=== PATIENT | female | born 2000 | race Native Hawaiian/Other Pacific Islander ===

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

== ENCOUNTER 2022-03-22 10:50 | Emergency (ER) | payer OTHER ==
[2022-03-22 10:56] VITALS: BP 127/83; PULSE 96; RESP 14; TEMP 97.7
[2022-03-22] MEDS ORDERED: SODIUM CHLORIDE 0.9% 2,000 ML IV STA (11:31)
[2022-03-22] MEDS ORDERED: ONDANSETRON 4 MG/2 ML VIAL IVP STA (11:31)
[2022-03-22] MEDS ORDERED: MORPHINE SULFATE 4 MG/ML SYRINGE IV STA (11:31)
[2022-03-22 12:58] LABS: Basophils # (A) 0.1 k/uL (0-0.2); Basophils % (A) 1 %; Eosinophils # (A) 0.2 k/uL (0-0.7); Eosinophils % (A) 2 %; HCT 43.6 % (34.0-46.0); HGB 13.9 gm/dL (11.4-16.0); Lymphocytes # (A) 2.7 k/uL (1.0-4.8); Lymphocytes % (A) 26 %; MCH 29.3 pg (25.0-35.0); MCHC 31.9 g/dL (31.0-37.0); MCV 91.9 fL (80.0-100.0); Mean Platelet Volume 8.2; Monocytes # (A) 0.5 k/uL (0-1.0); Monocytes % (A) 5 %; Neutrophils # (A) 6.9 k/uL (1.3-7.7); Neutrophils % (A) 65 %; Platelet Count 293 k/uL (150-450); RBC 4.75 m/uL (3.80-5.40); WBC 10.6 k/uL (4.0-11.0)
[2022-03-22 13:19] LABS: ALT 25 U/L (4-34); AST 26 U/L (14-36); African American GFR (CKD) >90 (>60 ml/min/1.73 sqM); Albumin 4.6 g/dL (3.5-5.0); Alkaline Phosphatase 72 U/L (38-126); Amylase 73 U/L (30-110); Anion Gap 8 mmol/L; Blood Urea Nitrogen 7 mg/dL (7-17); Calcium 9.3 mg/dL (8.4-10.2); Carbon Dioxide 25 mmol/L (22-30); Chloride 107 mmol/L (98-107); Glucose 84 mg/dL (74-99); Lipase 67 U/L (23-300); Non-African American GFR(CKD) >90 (>60 ml/min/1.73 sqM); Sodium 140 mmol/L (137-145); Total Bilirubin 0.3 mg/dL (0.2-1.3); Total Protein 7.6 g/dL (6.3-8.2)
--- NOTE | 2022-03-22 13:59 | ED ---
Abdominal Pain HPI - General Chief Complaint: Abdominal Pain Stated Complaint: Gallbladder pain Time Seen by Provider: 03/22/22 11:08 Source: patient Mode of arrival: ambulatory - History of Present Illness Initial Comments: Patient is a 21-year-old female who presents to the emergency department with a chief complaint abdominal pain. She states the pain started yesterday abruptly and is continuous in the left upper quadrant. Described as a constant stabbing. Patient also reports nausea and vomiting, unable to tolerate food and liquid. Normal bowel movements. Patient went to urgent care today who sent her to the emergency department. Patient does admit to burning with urination. She states she was diagnosed with a urinary tract infection 1 month ago. Apparently pat ient was resistant to Macrobid so she was given 2 other antibiotics which she does not know the name of and has not taken. Patient denies history of kidney stone or infection. She does admit to intermittent fever. No back or side pain. States she's been taking her temperature home with max temp at 100.5 degrees Fahrenheit. She has not taken any antipyretics. Denies chance of . Denies chest pain, shortness of breath, or concerns. - Related Data Previous Rx's Medication Instructions Recorded Cephalexin [Keflex] 250 mg PO Q6HR 5 Days #20 cap 03/22/22 Dicyclomine [Bentyl] 20 mg PO TID PRN #21 tablet 03/22/22 Ondansetron Odt [Zofran Odt] 4 mg PO Q8HR PRN #21 tab 03/22/22 Allergies Allergy/AdvReac Type Severity Reaction Status Date / Time No Known Allergies Allergy Verified 03/22/22 12:10 Review of Systems ROS Statement: Those systems with pertinent positive or pertinent negative responses have been documented in the HPI. ROS Other: All systems not noted in ROS Statement are negative. Past Medical History Past Medical History: No Reported History Additional Past Medical History / Comment(s): UTI History of Any Multi-Drug Resistant Organisms: None Reported Past Surgical History: No Surgical Hx Reported Past Psychological History: ADD/ADHD Smoking Status: Vaper Past Alcohol Use History: None Reported Past Drug Use History: Marijuana General Exam General appearance: alert, in no apparent distress Head exam: Present: atraumatic, normocephalic, normal inspection Eye exam: Present: normal appearance, PERRL, EOMI. Absent: scleral icterus, conjunctival injection, periorbital swelling Respiratory exam: Present: normal lung sounds bilaterally. Absent: respiratory distress, wheezes, rales, rhonchi, stridor Cardiovascular Exam: Present: regular rate, normal rhythm, normal heart sounds. Absent: systolic murmur, diastolic murmur, rubs, gallop, clicks GI/Abdominal exam: Present: soft, tenderness (Left upper quadrant and right upper quadrant, negative Amezcua sign ), normal bowel sounds. Absent: distended, guarding, rebound, rigid Back exam: Present: CVA tenderness (L). Absent: CVA tenderness (R) Neurological exam: Present: alert, oriented X3, CN II-XII intact Psychiatric exam: Present: normal affect, normal mood Skin exam: Present: warm, dry, intact, normal color. Absent: rash Course Vital Signs 03/22/22 10:53 Temperature 97.7 F Pulse Rate 96 Respiratory 14 Rate Blood Pressure 127/83 O2 Sat by Pulse 97 Oximetry Medical Decision Making - Medical Decision Making This is a 21-year-old female with urinary tract infection presenting with left upper quadrant pain, fever, nausea, and vomiting. Thorough history and examination were performed. Patient is currently afebrile. She denies use of antipyretics at home. The abdomen is soft. There is moderate tenderness of the left upper quadrant. Mild left CVA tenderness. Patient also has tenderness in the right upper quadrant. Negative Amezcua sign. Based on patient's history and presentation and physical exam, acute abdominal process cannot be ruled out. I will obtain laboratory studies and CT of abdomen and pelvis with contrast. Urinalysis reveals rare bacteria and large leukocyte esterase however is contaminated by 14 squamous cells. Other laboratory studies are within normal limits. CT of the abdomen and pelvis is unremarkable. Results discussed with patient. At this time there are no diagnostic studies to explain patient's symptoms. Patient will be discharged with Bentyl and Zofran for her symptoms. I will also prescribe her Keflex for possible urinary tract infection since she is still experiencing dysuria. Patient instructed to follow-up with primary care provider in one to 2 days. Return parameters discussed. Patient verbalizes understanding and is agreeable to this plan. Dr. Lieberman is my attending. - Lab Data Result diagrams: 03/22/22 11:56 03/22/22 11:56 Lab Results 03/22/22 03/22/22 03/22/22 Range/Units 11:56 11:56 11:56 WBC 10.6 (4.0-11.0) k/uL RBC 4.75 (3.80-5.40) m/uL Hgb 13.9 (11.4-16.0) gm/dL Hct 43.6 (34.0-46.0) % MCV 91.9 (80.0-100.0) fL MCH 29.3 (25.0-35.0) pg MCHC 31.9 (31.0-37.0) g/dL RDW 13.0 (11.5-15.5) % Plt Count 293 (150-450) k/uL MPV 8.2 Neutrophils % 65 % Lymphocytes % 26 % Monocytes % 5 % Eosinophils % 2 % Basophils % 1 % Neutrophils # 6.9 (1.3-7.7) k/uL Lymphocytes # 2.7 (1.0-4.8) k/uL Monocytes # 0.5 (0-1.0) k/uL Eosinophils # 0.2 (0-0.7) k/uL Basophils # 0.1 (0-0.2) k/uL Sodium 140 (137-145) mmol/L Potassium 4.0 (3.5-5.1) mmol/L Chloride 107 (98-107) mmol/L Carbon Dioxide 25 (22-30) mmol/L Anion Gap 8 mmol/L BUN 7 (7-17) mg/dL Creatinine 0.71 (0.52-1.04) mg/dL Est GFR (CKD-EPI)AfAm >90 (>60 ml/min/1.73 sqM) Est GFR (CKD-EPI)NonAf >90 (>60 ml/min/1.73 sqM) Glucose 84 (74-99) mg/dL Calcium 9.3 (8.4-10.2) mg/dL Total Bilirubin 0.3 (0.2-1.3) mg/dL AST 26 (14-36) U/L ALT 25 (4-34) U/L Alkaline Phosphatase 72 (38-126) U/L Total Protein 7.6 (6.3-8.2) g/dL Albumin 4.6 (3.5-5.0) g/dL Amylase 73 (30-110) U/L Lipase 67 (23-300) U/L HCG, Qual Urine Color Light Yellow Urine Appearance Cloudy H (Clear) Urine pH 6.5 (5.0-8.0) Ur Specific [place] 1.010 (1.001-1.035) Urine Protein Negative (Negative) Urine Glucose (UA) Negative (Negative) Urine Ketones Negative (Negative) Urine Blood Negative (Negative) Urine Nitrite Negative (Negative) Urine Bilirubin Negative (Negative) Urine Urobilinogen <2.0 (<2.0) mg/dL Ur Leukocyte Esterase Large H (Negative) Urine RBC 2 (0-5) /hpf Urine WBC 4 (0-5) /hpf Ur Squamous Epith Cells 14 H (0-4) /hpf Urine Bacteria Rare H (None) /hpf Urine Mucus Rare H (None) /hpf 03/22/22 Range/Units 11:56 WBC (4.0-11.0) k/uL RBC (3.80-5.40) m/uL Hgb (11.4-16.0) gm/dL Hct (34.0-46.0) % MCV (80.0-100.0) fL MCH (25.0-35.0) pg MCHC (31.0-37.0) g/dL RDW (11.5-15.5) % Plt Count (150-450) k/uL MPV Neutrophils % % Lymphocytes % % Monocytes % % Eosinophils % % Basophils % % Neutrophils # (1.3-7.7) k/uL Lymphocytes # (1.0-4.8) k/uL Monocytes # (0-1.0) k/uL Eosinophils # (0-0.7) k/uL Basophils # (0-0.2) k/uL Sodium (137-145) mmol/L Potassium (3.5-5.1) mmol/L Chloride (98-107) mmol/L Carbon Dioxide (22-30) mmol/L Anion Gap mmol/L BUN (7-17) mg/dL Creatinine (0.52-1.04) mg/dL Est GFR (CKD-EPI)AfAm (>60 ml/min/1.73 sqM) Est GFR (CKD-EPI)NonAf (>60 ml/min/1.73 sqM) Glucose (74-99) mg/dL Calcium (8.4-10.2) mg/dL Total Bilirubin (0.2-1.3) mg/dL AST (14-36) U/L ALT (4-34) U/L Alkaline Phosphatase (38-126) U/L Total Protein (6.3-8.2) g/dL Albumin (3.5-5.0) g/dL Amylase (30-110) U/L Lipase (23-300) U/L HCG, Qual Not Detected Urine Color Urine Appearance (Clear) Urine pH (5.0-8.0) Ur Specific [place] (1.001-1.035) Urine Protein (Negative) Urine Glucose (UA) (Negative) Urine Ketones (Negative) Urine Blood (Negative) Urine Nitrite (Negative) Urine Bilirubin (Negative) Urine Urobilinogen (<2.0) mg/dL Ur Leukocyte Esterase (Negative) Urine RBC (0-5) /hpf Urine WBC (0-5) /hpf Ur Squamous Epith Cells (0-4) /hpf Urine Bacteria (None) /hpf Urine Mucus (None) /hpf Disposition Clinical Impression: Nausea and vomiting, Abdominal pain Disposition: HOME SELF-CARE Condition: Good Additional Instructions: Please take medication as directed. Follow-up with primary care provider in one to 2 days. Return to the emergency department if you experience new, concerning, or worsening symptoms. Prescriptions: Dicyclomine [Bentyl] 20 mg PO TID PRN #21 tablet PRN Reason: Pain Cephalexin [Keflex] 250 mg PO Q6HR 5 Days #20 cap Ondansetron Odt [Zofran Odt] 4 mg PO Q8HR PRN #21 tab PRN Reason: Nausea Is patient prescribed a controlled substance at d/c from ED?: No Referrals: Benny Rivera Jr, [Primary Care Provider] - 1-2 days Time of Disposition: 15:16
[2022-03-22 14:06] LABS: Appearance,Urine Cloudy (Clear); Bacteria,Urine Rare /hpf; Bilirubin,Urine Negative (Negative); Blood,Urine Negative (Negative); Color,Urine Light Yellow; Glucose,Urine (UA) Negative (Negative); Ketones,Urine Negative (Negative); Leukocyte Esterase,Urine Large (Negative); Mucus,Urine Rare /hpf; Nitrite,Urine Negative (Negative); PH, Urine 6.5 (5.0-8.0); Protein,Urine Negative (Negative); RBC,Urine 2 /hpf (0-5); Squamous Epithelial Cell,Urine 14 /hpf (0-4); Urobilinogen,Urine <2.0 mg/dL (<2.0); WBC,Urine 4 /hpf (0-5)
--- NOTE | 2022-03-22 14:38 | CT ---
EXAMINATION TYPE: CT abdomen pelvis w con DATE OF EXAM: 03/22/2022 COMPARISON: None available HISTORY: LUQ pain CT DLP: 715.6 mGycm Automated exposure control for dose reduction was used. TECHNIQUE: Helical acquisition of images was performed from the lung bases through the pelvis. CONTRAST: Performed without Oral Contrast and with IV Contrast, patient injected with 100 mL of Isovue 300. FINDINGS: LUNG BASES: No significant abnormality is appreciated. LIVER/GB: No significant abnormality is appreciated. PANCREAS: No significant abnormality is seen. SPLEEN: No significant abnormality is seen. ADRENALS: No significant abnormality is seen. KIDNEYS: No significant abnormality is seen. FREE AIR: No free air is visualized. RETROPERITONEAL ADENOPATHY: None visualized REPRODUCTIVE ORGANS: No gross uterine or adnexal mass, yet suboptimally assessed. URINARY BLADDER: No significant abnormality is seen. PELVIC ADENOPATHY: None visualized. 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 No aggressive bone lesion. BOWEL: Unremarkable nondistended stomach. Reduced diameter of the third part of the duodenum, possib ly due to the patient's body habitus rather than superior mesenteric artery syndrome. Unremarkable sm all bowel. Moderate fecal loading of the colon. Normal appendix. OTHER: Unremarkable abdominal aorta and IVC. No sizable ascites. IMPRESSION: No definite acute abnormality is seen in the abdomen or the pelvis. Incidental findings as described above.
== END 2022-03-22 15:21 | disposition home or self-care (01) ==
LOC: EC 10:50
DX: R10.12 Left upper quadrant pain (principal); R11.2 Nausea with vomiting, unspecified; F17.290 Nicotine dependence, other tobacco product, uncomplicated; Z87.440 Personal history of urinary (tract) infections
CPT/HCPCS: 36415; 80053; 82150; 83690; 85025; 81001; 84703; 74177; 99284; 96374; 96375; 96361; J2270; J2405; Q9967

== ENCOUNTER 2022-03-26 17:11 | Emergency (ER) | payer OTHER ==
[2022-03-26 18:47] VITALS: BP 115/76; PULSE 89; RESP 18; TEMP 97.8
[2022-03-26 19:06] LABS: Appearance,Urine Clear (Clear); Bacteria,Urine Rare /hpf; Bilirubin,Urine Negative (Negative); Blood,Urine Trace (Negative); Color,Urine Light Yellow; Glucose,Urine (UA) Negative (Negative); Ketones,Urine Negative (Negative); Leukocyte Esterase,Urine Trace (Negative); Mucus,Urine Few /hpf; Nitrite,Urine Negative (Negative); PH, Urine 5.5 (5.0-8.0); Protein,Urine Negative (Negative); RBC,Urine 1 /hpf (0-5); Specific Gravity,Urine 1.011 (1.001-1.035); Squamous Epithelial Cell,Urine 2 /hpf (0-4); Urobilinogen,Urine <2.0 mg/dL (<2.0); WBC,Urine 4 /hpf (0-5)
== END 2022-03-26 20:52 | disposition left against medical advice (07) ==
LOC: EC 17:11
DX: Z53.21 Procedure and treatment not carried out due to patient leaving prior to being seen by health care provider (principal)
CPT/HCPCS: 81001; 81025; 99499

== ENCOUNTER → 2022-04-11 | Outpatient (CLI) | payer OTHER ==
--- NOTE | 2022-04-11 16:21 | US ---
EXAMINATION TYPE: US abdomen complete DATE OF EXAM: 04/11/2022 COMPARISON: None CLINICAL HISTORY: 21-year-old female R10.30 LOWER ABDOMINAL PAIN, UNSPECIFIED,R11.2,N92.6. Pain, naus ea, vomiting. EXAM MEASUREMENTS: Liver Length: 13.7 cm Gallbladder Wall: 0.25 cm CBD: 0.41 cm Spleen: 10.3 cm Right Kidney: 12.3 x 5.7 x 4.0 cm Left Kidney: 11.0 x 5.3 x 5.3 cm Language Tutor notes: Limited due to gas. Pancreas: Slightly limited head due to gas. Remainder of the pancreas shows no gross abnormality. Liver: No abnormalities seen. Gallbladder: No abnormal distention, wall thickening, pericholecystic fluid, or shadowing calculi. Evidence for sonographic Amezcua's sign: No CBD: Portions seen appear wnl Spleen: Limited, no abnormalities seen. Right Kidney: Measures upper limits of normal. No hydronephrosis. Left Kidney: Appears wnl. No hydronephrosis. Upper IVC: Appears wnl Abd Aorta: Appears wnl IMPRESSION: Slightly limited due to bowel gas. Otherwise, unremarkable sonographic examination of the abdomen.
--- NOTE | 2022-04-11 16:25 | US ---
EXAMINATION TYPE: US pelvis complete transvag DATE OF EXAM: 04/11/2022 COMPARISON: CT 03/22/2022 CLINICAL HISTORY: 21-year-old female R10.30 LOWER ABDOMINAL PAIN, UNSPECIFIED,R11.2,N92.6. Pain. Keyla ent states she took an at home test and it was positive. Patient states doctor's office pre gnancy test was negative. Ultrasound ordered of the pelvis for late menstrual period, nausea/vomiting , and pain. LMP 02/15/2022. TECHNIQUE: Transabdominal sonographic images of the pelvis were acquired. Transvaginal sonographic i mages were medically necessary to better assess the following anatomy: Ovaries Date of LMP: 02/15/2022 EXAM MEASUREMENTS: Uterus: 7.1 x 5.0 x 3.4 cm Endometrial Stripe: 0.88 cm Right Ovary: 3.5 x 2.3 x 2.1 cm Left Ovary: 3.4 x 2.8 x 2.5 cm 1. Uterus: Anteverted. Anechoic fluid-appearing area seen in cervix: 0.9 x 0.2 x 0.3 cm. 2. Endometrium: Measures 0.88 cm. 3. Right Ovary: Oval hypoechoic lesion measuring 1.5 x 1.4 x 1.4 cm with prominent peripheral vascul arity suggesting a hemorrhagic corpus luteum. Peripheral follicles are present. 4. Left Ovary: Complex lesion measuring 2.0 x 2.6 x 2.2 cm with internal reticulations. Mural based crescentic area, suspected retractile clot. 5. Bilateral Adnexa: Appear wnl 6. Posterior cul-de-sac: Mild free fluid visualized. IMPRESSION: 1. Small amount of 9 x 3 mm fluid along the endocervical canal. Correlate with serial beta hCG. Some hemorrhagic debris or failed not excluded at this time. No visualized intrauterine pregnanc y. 2. A 1.5 cm hemorrhagic corpus luteum right ovary. 3. Suspect an additional hemorrhagic cyst measuring 2.6 cm and the left ovary. Follow-up ultrasound i n 6-8 weeks to ensure involution of both of these structures. 4. Mild cul-de-sac free fluid likely physiologic.
== END | disposition home or self-care (01) ==
LOC: RADUSWWP 09:08
PROVIDERS: ATTEND Family Medicine
DX: N92.6 Irregular menstruation, unspecified (principal); R14.3 Flatulence; R11.2 Nausea with vomiting, unspecified; R10.30 Lower abdominal pain, unspecified
CPT/HCPCS: 76700; 76830; 76856

== ENCOUNTER 2023-06-19 12:37 | Outpatient (CLI) | payer OTHER ==
[2023-06-19 13:34] LABS: Appearance,Urine Clear (Clear); Bilirubin,Urine Negative (Negative); Blood,Urine Negative (Negative); Color,Urine Light Yellow; Glucose,Urine (UA) Negative (Negative); Ketones,Urine 1+ (Negative); Leukocyte Esterase,Urine Small (Negative); Mucus,Urine Rare /hpf; Nitrite,Urine Negative (Negative); PH, Urine 7.5 (5.0-8.0); Protein,Urine Trace (Negative); RBC,Urine <1 /hpf (0-5); Specific Gravity,Urine 1.007 (1.001-1.035); Squamous Epithelial Cell,Urine 1 /hpf (0-4); Urobilinogen,Urine <2.0 mg/dL (<2.0); WBC,Urine 9 /hpf (0-5)
[2023-06-19 13:44] LABS: Basophils % (A) 0 %; Eosinophils # (A) 0.2 k/uL (0-0.7); Eosinophils % (A) 2 %; HCT 32.4 % (34.0-46.0); HGB 11.1 gm/dL (11.4-16.0); Lymphocytes % (A) 16 %; MCHC 34.4 g/dL (31.0-37.0); MCV 93.1 fL (80.0-100.0); Monocytes # (A) 0.5 k/uL (0-1.0); Monocytes % (A) 4 %; Neutrophils # (A) 9.4 k/uL (1.3-7.7); Neutrophils % (A) 76 %; Platelet Count 208 k/uL (150-450); RBC 3.48 m/uL (3.80-5.40); RDW 14.1 % (11.5-15.5); WBC 12.3 k/uL (3.8-10.6)
[2023-06-19 13:56] LABS: AST 27 U/L (14-36); African American GFR (CKD) >90 (>60 ml/min/1.73 sqM); Blood Urea Nitrogen 5 mg/dL (7-17); LDH 186 U/L (120-246); Non-African American GFR(CKD) >90 (>60 ml/min/1.73 sqM); Uric Acid 3.8 mg/dL (3.7-7.4)
[2023-06-19 14:02] LABS: ALT 27 U/L (4-34)
[2023-06-19 15:14] LABS: Creatinine,Urine Random 50.2 mg/dL; Protein/Creatinine Ratio,Urine 0.637
[2023-06-19 18:45] VITALS: BP 128/83; PULSE 82; RESP 18; TEMP 97.7
--- NOTE | 2023-06-20 04:52 | P.MSEPDOC ---
Presenting Problems - Arrival Data Date of Arrival on Unit: 06/19/23 Time of Arrival on Unit: 12:37 Mode of Transport: Ambulatory - Complaint OB-Reason for Admission/Chief Complaint: PIH Comment: pt sent over from the office for PIH workup due to a few elevated bp's Medical History - Information : 1 Para: 0 Term: 0 : 0 Abortions: Spontaneous or Elective: 0 Number of Living Children: 0 - Gestational Age Gestational Age by ANGELITO (wks/days): 39 Weeks and 4 Days Review of Systems - Review of Systems Constitutional: No problems Breast: No problems ENT: No problems Cardiovascular: No problems Respiratory: No problems Gastrointestinal: No problems Genitourinary: No problems Musculoskeletal: No problems Neurological: No problems Skin: No problems Vital Signs - Temperature Temperature: 97.7 F Temperature Source: Temporal Artery Scan - Pulse Right Brachial Pulse Rate: 82 Pulse Assessment Method: Automatic Cuff - Respirations Respiratory Rate: 18 Oxygen Delivery Method: Room Air O2 Sat by Pulse Oximetry: 97 - Blood Pressure Right Arm Blood Pressure: 128/83 Blood Pressure Mean: 98 Blood Pressure Source: Automatic Cuff Medical Screen Scoring - Uterine Contractions Intensity: Mild Resting: Soft to palpation - Assessment - Baby A Baseline FHR: 120 Heart Rate - NICHD Category: Category I (Normal) NST: Reactive Physician Notification - Physician Notified Physician Notified Date: 06/19/23 Physician Notified Time: 13:10 Physician: Liana Urban New Order Received: Yes - Notification Comment Comment: pt's labs wnl except for elevated protien/creatine ratio, bp's wnl, pt is being discharged home tonight and added to schedule for cervidil induction tomorrow 06/20/23, pt given instructions on labor and preeclampsia s/s and when to return Maternal Triage Index - Maternal Triage Index Presenting for scheduled procedure w/no complaint: No - Stat/Priority 1 Stat Priority 1: No - Urgent/Priority 2 Urgent Priority 2: Yes Provider Notified: Liana Urban Provider Notified Time: 13:10 Criteria Met for Priority 2: pt sent over from the office for PIH workup due to a few elevated bp's Disposition - Disposition OB Disposition: Triage, Discharge to home Discharge Date: 06/19/23 Discharge Time: 16:15 I agree with the RN Medical Screening Exam: Yes Physician's MSE Comment: Due to to elevated blood pressures in the office and PC ratio elevated despite normal blood pressures in triage, patient does have a diagnosis of frequency without severe features. Patient was advised that she could stay this evening for Cervidil cervical ripening followed by oxytocin induction tomorrow morning. Patient wished to go home today and come back tomorrow. Since all of her blood pressures were in the normal range in triage, I felt comfortable with this plan but she was advised to return if any new signs or symptoms including headaches, blurry vision, or epigastric pain. She will return tomorrow evening for Cervidil cervical ripening followed by oxytocin induction of labor on . Case reviewed; plan agreed upon as documented in EMR&OBIX.: Yes Diagnosis: MILD TO MODERATE PRE-ECLAMPSIA, THIRD TRIMESTER
== END 2023-06-19 16:15 | disposition home or self-care (01) ==
LOC: FBPOP 12:37
PROVIDERS: ATTEND Obstetrics & Gynecology
DX: O14.03 Mild to moderate pre-eclampsia, third trimester (principal); Z3A.39 39 weeks gestation of pregnancy; Z91.030 Bee allergy status
CPT/HCPCS: 59025; 36415; 82570; 84156; 82565; 83615; 84450; 84460; 84520; 84550; 85025; 81001; G0463; 99215

== ENCOUNTER 2023-06-20 15:50 | Inpatient (IN) | payer OTHER ==
[2023-06-20] MEDS ORDERED: DINOPROSTONE 10 MG INSERT.ER VAGINAL ONE (16:30)
[2023-06-21 00:45] LABS: Amphetamine Screen,Urine Not Detected (NotDetected); Barbiturate Screen,Urine Not Detected (NotDetected); Benzodiazepines Screen,Urine Not Detected (NotDetected); Cocaine Screen,Urine Not Detected (NotDetected); Methadone Screen, Urine Not Detected (NotDetected); Opiate Screen,Urine Not Detected (NotDetected); Oxycodone Screen, Urine Not Detected (NotDetected); Phencyclidine Screen,Urine Not Detected (NotDetected); Tricyclic Antidepressant,Urine Not Detected (NotDetected); Urn Cannabinoid Scrn Not Detected (NotDetected)
[2023-06-21] MEDS ORDERED: LIDOCAINE 0.5% (PF) 5 MG/ML (50 ML SDV) SQ PRN (05:02)
[2023-06-21] MEDS ORDERED: METHYLERGONOVINE 0.2 MG/ML 1 ML AMP IM PRN (05:02)
[2023-06-21] MEDS ORDERED: CARBOPROST TROMETHAMINE 250 MCG/ML 1 ML AMP IM PRN (05:02)
[2023-06-21] MEDS ORDERED: TRANEXAMIC 1,000 MG/100ML-NACL 1,000 MG in EMPTY BAG 1 BAG IV PRN (05:02)
[2023-06-21] MEDS ORDERED: OXYTOCIN 10 UNIT/ML 1 ML VIAL IM PRN (05:02)
[2023-06-21] MEDS ORDERED: TERBUTALINE 1 MG/ML VIAL SQ PRN (05:02)
[2023-06-21] MEDS ORDERED: miSOPROStoL 200 MCG TAB PO PRN (05:02)
[2023-06-21] MEDS: LACTATED RINGERS 1,000 ML IV SCH ×2 (05:15→13:17)
[2023-06-21] MEDS: OXYTOCIN 30 UNITS/500 ML NS 30 UNIT in SALINE 1 500ML.BAG IV SCH (05:50)
[2023-06-21 06:03] LABS: Basophils % (A) 0 %; Eosinophils # (A) 0.3 k/uL (0-0.7); Eosinophils % (A) 2 %; HCT 35.4 % (34.0-46.0); HGB 11.9 gm/dL (11.4-16.0); Lymphocytes # (A) 2.5 k/uL (1.0-4.8); Lymphocytes % (A) 20 %; MCH 31.6 pg (25.0-35.0); MCHC 33.7 g/dL (31.0-37.0); MCV 93.6 fL (80.0-100.0); Mean Platelet Volume 10.8; Monocytes # (A) 0.8 k/uL (0-1.0); Monocytes % (A) 6 %; Neutrophils # (A) 8.7 k/uL (1.3-7.7); Neutrophils % (A) 68 %; Platelet Count 224 k/uL (150-450); RBC 3.78 m/uL (3.80-5.40); RDW 14.3 % (11.5-15.5); WBC 12.7 k/uL (3.8-10.6)
[2023-06-21] MEDS: HYDROmorphone 1 MG/ML 1 ML SYRINGE IVP PRN ×2 (16:07→19:05)
[2023-06-21] MEDS ORDERED: ROPIVACAINE 5 MG/ML 30 ML VIAL ONE (21:00)
[2023-06-21] MEDS ORDERED: SODIUM CHLORIDE 0.9% 250 ML BAG ONE (21:00)
[2023-06-21] MEDS ORDERED: fentaNYL (PF) 50 MCG/ML 5 ML AMP ONE (21:00)
[2023-06-22] MEDS ORDERED: HYDROCORTISONE 2.5% RECTAL CREAM 30 GM TUBE RECTAL PRN (00:09)
[2023-06-22] MEDS ORDERED: diphenhydrAMINE 50 MG/ML 1 ML VIAL IVP PRN ×2 (00:09)
[2023-06-22] MEDS ORDERED: BENZOCAINE/MENTHOL SPRAY 1 GM/SPRAY AEROSOL TOPICAL PRN (00:09)
[2023-06-22] MEDS ORDERED: ACETAMINOPHEN TAB 325 MG TAB PO PRN (00:09)
[2023-06-22] MEDS ORDERED: SIMETHICONE 80 MG CHEWABLE PO PRN (00:09)
[2023-06-22] MEDS ORDERED: diphenhydrAMINE 50 MG CAP PO PRN (00:09)
[2023-06-22] MEDS ORDERED: diphenhydrAMINE 25 MG CAP PO PRN (00:09)
[2023-06-22] MEDS ORDERED: LANOLIN CREAM 5 GM TUBE TOPICAL PRN (00:09)
[2023-06-22] MEDS: LACTATED RINGERS 1,000 ML IV SCH ×2 (00:15→20:39)
[2023-06-22] MEDS: IBUPROFEN 600 MG TAB PO PRN ×4 (00:42→20:40)
[2023-06-22] MEDS: OXYTOCIN 30 UNITS/500 ML NS 30 UNIT in SALINE 1 500ML.BAG IV SCH (00:42)
--- NOTE | 2023-06-22 07:46 | P.HPOB ---
History of Present Illness H&P Date: 06/20/23 Chief Complaint: induction of labor 23 year old presents at 39 weeks 5 days for 2 stage induction of labor. Her cervix is closed, thick and -3 station. heart tones are category 1. She did have a few higher BPs over the last few days. Review of Systems All systems: negative Constitutional: Denies chills, Denies fever Eyes: denies blurred vision, denies pain Ears, nose, mouth and throat: Denies headache, Denies sore throat Cardiovascular: Denies chest pain, Denies shortness of breath Respiratory: Denies cough Gastrointestinal: Denies abdominal pain, Denies diarrhea, Denies nausea, Denies vomiting Genitourinary: Denies dysuria, Denies hematuria Musculoskeletal: Denies myalgias Integumentary: Denies pruritus, Denies rash Neurological: Denies numbness, Denies weakness Psychiatric: Denies anxiety, Denies depression Endocrine: Denies fatigue, Denies weight change Past Medical History Past Medical History: No Reported History Additional Past Medical History / Comment(s): UTI History of Any Multi-Drug Resistant Organisms: None Reported Past Surgical History: No Surgical Hx Reported Past Anesthesia/Blood Transfusion Reactions: No Reported Reaction Past Psychological History: ADD/ADHD Smoking Status: Current every day smoker Past Alcohol Use History: None Reported Past Drug Use History: Marijuana Additional Drug Use History / Comment(s): stopped marijuana use 4 days ago. Medications and Allergies Home Medications Medication Instructions Recorded Confirmed Type Vit No.179/Iron/Folic 1 tab PO DAILY 11/28/22 06/20/23 History [ Tablet] Allergies Allergy/AdvReac Type Severity Reaction Status Date / Time bee venom protein (honey bee) Allergy Anaphylaxis Verified 06/19/23 12:52 Exam Osteopathic Statement: *. No significant issues noted on an osteopathic structural exam other than those noted in the History and Physical/Consult. Vital Signs Temp Pulse Resp BP Pulse Ox 06/22/23 04:00 98.5 F 84 16 138/87 06/22/23 01:10 98.3 F 106 H 16 137/63 98 06/22/23 00:40 115 H 15 113/71 96 06/22/23 00:10 97.8 F 84 16 122/60 93 L 06/21/23 23:55 97.8 F 100 15 132/83 06/21/23 23:40 101 H 15 122/81 97 06/21/23 23:25 98.3 F 96 16 128/68 98 06/21/23 23:10 102 H 16 139/91 Intake and Output 06/21/23 06/22/23 06/22/23 22:59 06:59 14:59 Intake Total 37.733 Output Total 420 Balance -382.267 Intake: Intake, IV Titration 37.733 Amount Oxytocin 30 Units/500 ml 37.733 Ns 30 unit In Saline 1 500ml.bag @ Per Protocol IV .Q0M [facility] Rx#:[id number] Output: Estimated Blood Loss 200 Output, Quantitative 220 Blood Loss Other: # Voids 1 1 Heart: Regular rate and rhythm Lungs: Clear to auscultation bilaterally Abdomen: Soft, nontender Extremities: Negative Homans sign Results Result Diagrams: 06/21/23 05:23 Assessment and Plan (1) Gestational hypertension Current Visit: Yes Status: Acute Code(s): O13.9 - GESTATIONAL HTN W/O SIGNIFICANT PROTEINURIA, UNSP TRIMESTER SNOMED Code(s): 22343312 (2) Encounter for induction of labor Current Visit: Yes Status: Acute Code(s): Z34.90 - ENCNTR FOR SUPRVSN OF NORMAL , UNSP, UNSP TRIMESTER SNOMED Code(s): 553091975 Plan: 1. Cervidil tonight and then amniotomy and Pitocin the morning
--- NOTE | 2023-06-22 07:48 | P.PROBDLV ---
Vaginal Delivery Note - . Vaginal Delivery Note: 23 year old presents at 39 weeks 5 days for 2 stage induction of labor. Her cervix is closed, thick and -3 station. heart tones are category 1. She did have a few higher BPs over the last few days. Cervidil was placed and 12 hours later was removed. Her cervix was still closed and 50% and -2 station. We did start Pitocin around 7 AM she started having some regular contractions. At 1227 her cervix was 1 cm dilated, 80% effaced, -2 station. Amniotomy was performed and clear fluid was noted. She progressed slowly throughout the day and she was very uncomfortable got an epidural. Her cervix was completely dilated around 20-30. She pushed, and delivered a viable male infant over intact perineum under epidural anesthesia at 2304. Head delivered OA, anterior shoulder delivered gentle downward guidance folic posterior shoulder and rest of body. Nose and mouth bulb suctioned, cord clamped and cut, infant placed mother's abdomen. Apgars 8, 9, weight 7 lbs. 10 oz. Placenta delivered spontaneously, intact with three-vessel cord at 2309. Vagina, cervix, perineum inspected. No lacerations noted. Estimated blood loss 200 mL. Mother and baby in stable condition.
--- NOTE | 2023-06-22 07:49 | P.DS ---
Providers Date of admission: 06/20/23 15:50 Expected date of discharge: 06/22/23 Attending physician: Ariadna Vo Primary care physician: Stated None - Discharge Diagnosis(es) (1) Gestational hypertension Current Visit: Yes Status: Acute (2) Encounter for induction of labor Current Visit: Yes Status: Resolved (3) Normal vaginal delivery Current Visit: Yes Status: Acute Hospital Course: Patient presented for induction of labor. She underwent a normal vaginal delivery. course was uneventful. She denies nausea, vomiting, chest pain, shortness of breath or calf pain. She'll be discharged home day #1 in stable condition to follow-up with me in 6 weeks. Plan - Discharge Summary New Discharge Prescriptions: New Ibuprofen [Motrin] 600 mg PO Q6HR PRN #30 tab PRN Reason: Mild Pain Or Fever >= 100.5 No Action Vit No.179/Iron/Folic [ Tablet] 1 tab PO DAILY Discharge Medication List Vit No.179/Iron/Folic [ Tablet] 1 tab PO DAILY 11/28/22 [History] Ibuprofen [Motrin] 600 mg PO Q6HR PRN #30 tab 06/22/23 [Rx] Follow up Appointment(s)/Referral(s): Ariadna Vo DO [Doctor of Osteopathic Medicine] - 07/31/23 11:15 am Discharge Disposition: HOME SELF-CARE
[2023-06-22] MEDS: SENNOSIDES-DOCUSATE SODIUM 1 EACH TAB PO SCH ×2 (10:38→20:40)
[2023-06-22 20:39] VITALS: RESP 16
[2023-06-23 06:21] LABS: Basophils % (A) 0 %; Eosinophils # (A) 0.3 k/uL (0-0.7); Eosinophils % (A) 2 %; HCT 29.8 % (34.0-46.0); Lymphocytes % (A) 22 %; MCH 31.1 pg (25.0-35.0); MCHC 33.4 g/dL (31.0-37.0); MCV 93.1 fL (80.0-100.0); Mean Platelet Volume 10.3; Monocytes # (A) 0.8 k/uL (0-1.0); Monocytes % (A) 5 %; Neutrophils # (A) 9.4 k/uL (1.3-7.7); Neutrophils % (A) 68 %; Platelet Count 239 k/uL (150-450); RBC 3.21 m/uL (3.80-5.40); RDW 14.1 % (11.5-15.5); WBC 13.8 k/uL (3.8-10.6)
[2023-06-23 08:37] VITALS: BP 142/92; PULSE 84; TEMP 97.5
[2023-06-23] MEDS: SENNOSIDES-DOCUSATE SODIUM 1 EACH TAB PO SCH (09:34)
== END 2023-06-23 11:00 | disposition home or self-care (01) | DRG 560 ==
LOC: 4FBP 15:50
PROVIDERS: ADMIT Obstetrics & Gynecology; ATTEND Obstetrics & Gynecology
PROC: 10E0XZZ Delivery of Products of Conception, External Approach (ICD-10-PCS; principal; 2023-06-21)
PROC: 3E0P7VZ Introduction of Hormone into Female Reproductive, Via Natural or Artificial Opening (ICD-10-PCS; 2023-06-21)
PROC: 3E033VJ Introduction of Other Hormone into Peripheral Vein, Percutaneous Approach (ICD-10-PCS; 2023-06-21)
PROC: 10907ZC Drainage of Amniotic Fluid, Therapeutic from Products of Conception, Via Natural or Artificial Opening (ICD-10-PCS; 2023-06-21)
PROC: 3E0R3BZ Introduction of Anesthetic Agent into Spinal Canal, Percutaneous Approach (ICD-10-PCS; 2023-06-21)
DX: O13.4 Gestational [pregnancy-induced] hypertension without significant proteinuria, complicating childbirth (principal); Z37.0 Single live birth; F17.210 Nicotine dependence, cigarettes, uncomplicated; O99.334 Smoking (tobacco) complicating childbirth; Z3A.39 39 weeks gestation of pregnancy; Z91.030 Bee allergy status
CPT/HCPCS: 80306; 85025; 86850; 86900; 86901

== ENCOUNTER 2024-08-10 19:46 | Emergency (ER) | payer OTHER ==
[2024-08-10 19:54] VITALS: TEMP 97.8
--- NOTE | 2024-08-10 20:35 | ED ---
Chest Pain HPI - General Chief Complaint: Chest Pain Stated Complaint: chest pain Time Seen by Provider: 08/10/24 20:00 Source: patient, RN notes reviewed Mode of arrival: ambulatory Limitations: no limitations - History of Present Illness Initial Comments: 24-year-old female presenting for epigastric pain x 3 days with associated chest pain and nausea and vomiting. Patient reports she has had progressively worsening, burning pain in her epigastric region, worse in the right upper quadrant that radiates to the chest. She reports pain has become more severe and constant over the past 3 days. She is also experiencing shortness of breath. She does have a history of "gallbladder sludge". Denies history of abdominal surgeries. Denies cardiac or pulmonary issues. She does have history of hyperthyroidism and has not been taking her medication due to pharmacy issue. Last bowel movement was prior to arrival and was normal. - Related Data Home Medications Medication Instructions Recorded Confirmed Vit No.179/Iron/Folic 1 tab PO DAILY 11/28/22 06/20/23 [ Tablet] Previous Rx's Medication Instructions Recorded Ibuprofen [Motrin] 600 mg PO Q6HR PRN #30 tab 06/22/23 Ketorolac [Toradol] 10 mg PO Q8HR #15 tab 08/10/24 Ondansetron Odt [Zofran Odt] 4 mg PO Q8HR PRN #10 tab 08/10/24 Allergies Allergy/AdvReac Type Severity Reaction Status Date / Time bee venom protein (honey bee) Allergy Anaphylaxis Verified 08/10/24 19:50 Review of Systems ROS Statement: Those systems with pertinent positive or pertinent negative responses have been documented in the HPI. ROS Other: All systems not noted in ROS Statement are negative. EKG Findings - EKG Results: EKG: interpreted by ERMD (EKG reveals normal sinus rhythm with no ST changes. Ventricular rate 70 bpm, MT interval 164, QRS duration 97, QT/QTc 366/399) Past Medical History Past Medical History: Thyroid Disorder Additional Past Medical History / Comment(s): UTI History of Any Multi-Drug Resistant Organisms: None Reported Past Surgical History: No Surgical Hx Reported Past Anesthesia/Blood Transfusion Reactions: No Reported Reaction Past Psychological History: ADD/ADHD Smoking Status: Current every day smoker Past Alcohol Use History: None Reported Past Drug Use History: Marijuana General Exam Limitations: no limitations General appearance: alert, in no apparent distress Head exam: Present: atraumatic, normocephalic, normal inspection Eye exam: Present: normal appearance, PERRL, EOMI. Absent: scleral icterus, conjunctival injection, periorbital swelling ENT exam: Present: normal exam, mucous membranes moist Neck exam: Present: normal inspection. Absent: tenderness, meningismus, lymphadenopathy Respiratory exam: Present: normal lung sounds bilaterally. Absent: respiratory distress, wheezes, rales, rhonchi, stridor, chest wall tenderness Cardiovascular Exam: Present: regular rate, normal rhythm, normal heart sounds. Absent: systolic murmur, diastolic murmur, rubs, gallop, clicks GI/Abdominal exam: Present: soft, tenderness (Mild right upper quadrant tenderness to palpation, negative Amezcua sign), normal bowel sounds. Absent: distended, guarding, rebound, rigid Neurological exam: Present: alert, oriented X3 Psychiatric exam: Present: normal affect, normal mood Skin exam: Present: warm, dry, intact, normal color. Absent: rash Course Vital Signs 08/10/24 08/10/24 19:50 22:30 Temperature 97.8 F Pulse Rate 100 64 Respiratory 18 16 Rate Blood Pressure 129/91 104/64 O2 Sat by Pulse 94 L 98 Oximetry Chest Pain MDM - MDM Was pt. sent in by a medical professional or institution (, PA, CARBOY FILLER, urgent care, hospital, or custodial...) When possible be specific @ -No Did you speak to anyone other than the patient for history (EMS, parent, family, police, friend...)? What history was obtained from this source @ -No Did you review nursing and triage notes (agree or disagree)? Why? @ -I reviewed and agree with nursing and triage notes Were old charts reviewed (outside hosp., previous admission, EMS record, old EKG, old radiological studies, urgent care reports/EKG's, custodial records)? Report findings @ -No old charts were reviewed Differential Diagnosis (chest pain, altered mental status, abdominal pain women, abdominal pain men, vaginal bleeding, weakness, fever, dyspnea, syncope, headache, dizziness, GI bleed, back pain, seizure, CVA, palpatations, mental health, musculoskeletal)? @ -Differential Abdominal Pain Women: Appendicitis, Cholecystitis, diverticulosis, ischemic bowel, pancreatitis, hepatitis, UTI, gastroenteritis, AAA, incarcerated hernia, bowel obstruction, constipation, inflammatory bowel, hepatitis, peptic ulcer disease, splenic infarction, perforated viscus, vulvitis, ovarian torsion, PID, kidney stone, placenta abruption, this is not meant to be an all-inclusive list Differential Chest Pain: Stable Angina, Unstable Angina, STEMI, NSTEMI Aortic Dissection, Pneumothorax, Musculoskeletal, Esophageal Spasm GERD, Cholecystitis, Pancreatitis, Zoster, this is not meant to be an all-inclusive list. EKG interpreted by me (3pts min.). @ -As above X-rays interpreted by me (1pt min.). @ -Chest x-ray interpreted by me reveals no acute process CT interpreted by me (1pt min.). @ -None done U/S interpreted by me (1pt. min.). @ -Ultrasound gallbladder reveals no acute abnormality of right upper quadrant What testing was considered but not performed or refused? (CT, X-rays, U/S, labs)? Why? @ -CT abdomen pelvis considered but deferred due to no red flag symptoms, symptom improvement with medication What meds were considered but not given or refused? Why? @ -None Did you discuss the management of the patient with other professionals (professionals i.e. , PA, CARBOY FILLER, lab, RT, psych nurse, social work job titles, master merchandiser, teacher, sba business development officer, case liner)? Give summary @ -No Was smoking cessation discussed for >3mins.? @ -No Was critical care preformed (if so, how long)? @ -No Were there social determinants of health that impacted care today? How? (Homelessness, low income, unemployed, alcoholism, drug addiction, transportation, low edu. Level, literacy, decrease access to med. care, snf, rehab)? @ -No Was there de-escalation of care discussed even if they declined (Discuss DNR or withdrawal of care, Hospice)? DNR status @ -No What co-morbidities impacted this encounter? (DM, HTN, Smoking, COPD, CAD, Cancer, CVA, ARF, Chemo, Hep., AIDS, mental health diagnosis, sleep apnea, morbid obesity)? @ -None Was patient admitted / discharged? Hospital course, mention meds given and route, prescriptions, significant lab abnormalities, going to OR and other pertinent info. @ -Discharged. This is a 24-year-old female presenting with epigastric pain x 3 days with radiation to the chest with associated nausea, vomiting, and shortness of breath. Vital signs are remarkable for heart rate 100 bpm, otherwise unremarkable. There is mild tenderness in right upper quadrant of abdomen. Negative Amezcua sign. Patient was provided with IV fluids, antiemetics and analgesics. Lab work including CBC, CMP, lactic acid, lipase, troponin, D-dimer remarkable for white blood cell count 14. TSH was less than 0.015. T4 pending. Urinalysis reveals 1+ ketones, 12 epithelial cells, likely contaminated sample unlikely to represent UTI. Chest x-ray reveals no acute process. Ultrasound gallbladder reveals no acute process. Workman and Wartofsky score 15, unlikely to represent thyroid storm. Patient has known history of hypothyroidism, currently off medications. Upon reevaluation, vital signs are all within normal limits. Patient reports improvement in symptoms and feels stable for discharge. I believe this is reasonable at this time as there are no red flag symptoms or signs of emergent etiology. Prescribed Zofran and Toradol to pharmacy. Strict return precautions discussed and patient is agreeable to plan. Advised to follow-up with PCP in 1 to 3 days. Case was discussed with my ED attending Dr. Jules. Patient discharged in stable condition. Undiagnosed new problem with uncertain prognosis? @ -No Drug Therapy requiring intensive monitoring for toxicity (Heparin, Nitro, Insulin, Cardizem)? @ -No Were any procedures done? @ -No Diagnosis/symptom? @ -Epigastric pain Acute, or Chronic, or Acute on Chronic? @ -Acute Uncomplicated (without systemic symptoms) or Complicated (systemic symptoms)? @ -Uncomplicated Side effects of treatment? @ -No Exacerbation, Progression, or Severe Exacerbation? @ -No Poses a threat to life or bodily function? How? (Chest pain, [place], [place], pneumonia, PE, COPD, DKA, ARF, appy, cholecystitis, CVA, Diverticulitis, Homicidal, S uicidal, threat to staff... and all critical care pts) @ -Not at this time Disposition Clinical Impression: Epigastric pain, Hyperthyroidism Disposition: HOME SELF-CARE Condition: Stable Instructions (If sedation given, give patient instructions): Hyperthyroidism (ED), Epigastric Pain (ED) Additional Instructions: Take Zofran as needed for nausea and Toradol as needed for pain. Follow-up with PCP for reevaluation in 1-3 days. Please return to the Emergency Department if symptoms worsen or any other concerns. Prescriptions: Ketorolac [Toradol] 10 mg PO Q8HR #15 tab Ondansetron Odt [Zofran Odt] 4 mg PO Q8HR PRN #10 tab PRN Reason: Nausea Is patient prescribed a controlled substance at d/c from ED?: No Referrals: Kaia Lopez [Primary Care Provider] - 1-2 days Time of Disposition: 22:43
[2024-08-10] MEDS: ONDANSETRON 4 MG/2 ML VIAL IVP STA (20:38)
[2024-08-10] MEDS: SODIUM CHLORIDE 0.9% 1,000 ML IV STA (20:38)
[2024-08-10] MEDS: KETOROLAC 15 MG/ML 1 ML VIAL IVP STA (20:38)
[2024-08-10 21:21] LABS: Appearance,Urine Cloudy (Clear); Bacteria,Urine Rare /hpf; Bilirubin,Urine Negative (Negative); Blood,Urine Negative (Negative); Color,Urine Yellow; Glucose,Urine (UA) Negative (Negative); Ketones,Urine 1+ (Negative); Leukocyte Esterase,Urine Small (Negative); Mucus,Urine Many /hpf; Nitrite,Urine Negative (Negative); PH, Urine 6.5 (5.0-8.0); Protein,Urine 1+ (Negative); RBC,Urine 4 /hpf (0-5); Specific Gravity,Urine 1.029 (1.001-1.035); Squamous Epithelial Cell,Urine 12 /hpf (0-4); WBC,Urine 9 /hpf (0-5)
[2024-08-10 21:26] LABS: Basophils % (A) 0 %; Eosinophils # (A) 0.3 k/uL (0-0.7); Eosinophils % (A) 2 %; HCT 39.3 % (34.0-46.0); HGB 13.7 gm/dL (11.4-16.0); Lymphocytes # (A) 2.9 k/uL (1.0-4.8); Lymphocytes % (A) 20 %; MCH 29.7 pg (25.0-35.0); MCHC 34.9 g/dL (31.0-37.0); MCV 85.2 fL (80.0-100.0); Mean Platelet Volume 8.4; Monocytes % (A) 7 %; Neutrophils # (A) 10.1 k/uL (1.3-7.7); Neutrophils % (A) 69 %; Platelet Count 332 k/uL (150-450); RBC 4.62 m/uL (3.80-5.40); RDW 12.4 % (11.5-15.5); WBC 14.6 k/uL (3.8-10.6)
--- NOTE | 2024-08-10 21:36 | XR ---
EXAMINATION TYPE: XR chest 2V DATE OF EXAM: 08/10/2024 COMPARISON: 12/06/2021 INDICATION: Chest pain TECHNIQUE: Frontal and lateral views of the chest are obtained. FINDINGS: The heart size is normal. The pulmonary vasculature is normal. The lungs are clear. IMPRESSION: 1. No acute pulmonary process. [facility], Workstation: [facility], 08/10/2024 9:34 PM
--- NOTE | 2024-08-10 21:42 | US ---
EXAMINATION TYPE: US gallbladder DATE OF EXAM: 08/10/2024 COMPARISON: 11/28/2022 CLINICAL INDICATION: Female, 24 years old with history of RUQ pain; Hx Sludge; Pain worse than prior visit; Nausea and vomiting TECHNIQUE: Grayscale and color Doppler imaging of the right upper quadrant was performed. FINDINGS: EXAM MEASUREMENTS: Liver Length: 14.7 cm Gallbladder Wall: 0.2 cm CBD: 0.4 cm Right Kidney: 10.7 x 4.1 x 6.1 cm EDITOR PRODUCER NOTES: Pancreas: wnl Liver: wnl Gallbladder: ? Hydropic - long axis = 13.0 cm Evidence for sonographic Amezcua's sign: Yes CBD: wnl Right Kidney: wnl IMPRESSION: 1. No acute ultrasound abnormality right upper quadrant [facility], Workstation: [facility], 08/10/2024 9:39 PM
[2024-08-10 21:43] LABS: ALT 22 U/L (4-34); AST 24 U/L (14-36); African American GFR (CKD) >90 (>60 ml/min/1.73 sqM); Albumin 4.2 g/dL (3.5-5.0); Alkaline Phosphatase 94 U/L (38-126); Anion Gap 6 mmol/L; Blood Urea Nitrogen 9 mg/dL (7-17); Calcium 9.5 mg/dL (8.4-10.2); Carbon Dioxide 23 mmol/L (22-30); Chloride 108 mmol/L (98-107); Glucose 102 mg/dL (74-99); Lipase 47 U/L (23-300); Non-African American GFR(CKD) >90 (>60 ml/min/1.73 sqM); Potassium 3.5 mmol/L (3.5-5.1); Sodium 137 mmol/L (137-145); Total Bilirubin 0.8 mg/dL (0.2-1.3); Total Protein 6.6 g/dL (6.3-8.2)
[2024-08-10 22:32] VITALS: RESP 16
[2024-08-10 23:44] VITALS: BP 110/74; PULSE 72
[2024-08-11 00:15] LABS: T4, Free (Free Thyroxine) 1.99 ng/dL (0.78-2.19)
== END 2024-08-10 23:00 | disposition home or self-care (01) ==
LOC: EC 19:46
DX: R10.13 Epigastric pain (principal); E05.90 Thyrotoxicosis, unspecified without thyrotoxic crisis or storm; F17.200 Nicotine dependence, unspecified, uncomplicated; Z91.030 Bee allergy status
CPT/HCPCS: 36415; 93005; 85379; 84439; 80053; 84443; 83605; 83690; 84484; 85025; 81001; 81025; 71046; 76705; 99285; 96360; J2405; J1885